=== PATIENT | male | born 1975 | race Caucasian/White ===

== ENCOUNTER 2016-09-02 14:56 | Emergency (ER) | payer BC ==
[~2016-09-02] VITALS: Ht 180.3 cm; Wt 108.0 kg
[~2016-09-02 14:56] MED LIST: KEFLEX500 MG PO; NORCO 5/3251 TABLET PO
[2016-09-02 17:07] VITALS: BP 124/88
== END 2016-09-02 17:07 | disposition home or self-care (01) ==
LOC: EXP 14:56 → EME 14:56 → EXP 17:07
DX: L03.012 Cellulitis of left finger (principal); I10 Essential (primary) hypertension
CPT/HCPCS: 73140; 99281; 99283